=== PATIENT | female | born 1990 | race American Indian/Alaskan Native ===

== ENCOUNTER 2021-12-09 22:00 | Emergency (ER) | payer SELFPAY ==
[2021-12-09 22:19] VITALS: BP 153/85
--- NOTE | 2021-12-10 10:39 | Electrocardiograph Report ---
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
== END 2021-12-10 00:08 | disposition left against medical advice (07) ==
LOC: ED 22:00
DX: R07.9 Chest pain, unspecified (principal); Z53.21 Procedure and treatment not carried out due to patient leaving prior to being seen by health care provider
CPT/HCPCS: 93005